=== PATIENT | male | born 1985 | race African-American/Black ===

== ENCOUNTER 2017-09-09 15:37 | Emergency (ER) | payer OTHER ==
[~2017-09-09] VITALS: Ht 177.8 cm; Wt 72.6 kg
[2017-09-09 16:38] LABS: Eosinophils # (auto) 0.1 uL; Hemoglobin 13.3 g/dL (13.5-17.5); Lymphocytes # (auto) 2.3 uL; Monocytes # (auto) 0.5 uL; Nucleated Red Blood Cells % 0.1 %; Red Cell Distribution Width 12.9 % (11.8-14.3); White Blood Cell 6.2 10^3/uL (4.4-10.8)
[2017-09-09 16:40] LABS: Basophils # (auto) 0 uL; Basophils % (auto) 0.8 % (0.0-2.0); Eosinophils % (auto) 1.1 % (0.0-7.0); Hematocrit 41.7 % (41.0-53.0); Lymphocytes % (auto) 37.1 % (10.0-50.0); Mean Corpuscular Hgb Conc. 31.8 g/dL (32.0-36.0); Mean Corpuscular Volume 78.6 fL (80.0-100.0); Neutrophils # (auto) 3.3 uL; Platelet Count (auto) 233 10^3/uL (140-450); Red Blood Cells 5.31 10^6/uL (4.5-5.90)
[2017-09-09 16:52] LABS: Alanine Aminotransferase 43 U/L (16-61); Albumin 3.9 g/dL (3.4-5.0); Alkaline Phosphatase 93 U/L (45-117); Anion Gap 8 (5-15); Aspartate Aminotransferase 35 U/L (15-37); BUN/Creatinine Ratio 11.9; Bilirubin, Total 0.3 mg/dL (0.2-1.0); Blood Urea Nitrogen 16 mg/dL (7-18); Calcium 8.6 mg/dL (8.5-10.1); Carbon Dioxide 27 mmol/L (21-32); Chloride 104 mmol/L (98-107); GFR African American 80 mL/min; GFR Non-African American 66 mL/min; Glucose 111 mg/dL (74-106); Potassium 3.5 mmol/L (3.5-5.1); Sodium 139 mmol/L (136-145); Total Protein 7.7 g/dL (6.4-8.2)
[2017-09-09 18:04] VITALS: BP 151/72
== END 2017-09-09 18:07 | disposition home or self-care (01) ==
LOC: ER 15:37
DX: R07.89 Other chest pain (principal); R00.2 Palpitations; R53.1 Weakness; F17.210 Nicotine dependence, cigarettes, uncomplicated
CPT/HCPCS: 36415; 71046; 80053; 84484; 85025; 93005